=== PATIENT | male | born 2000 | race African-American/Black ===

== ENCOUNTER 2023-01-26 13:01 | Emergency (ER) | payer OTHER ==
[~2023-01-26] VITALS: Ht 188 cm; Wt 94.1 kg
[2023-01-26] MEDS ORDERED: VITAD400CA FT (13:15)
[2023-01-26] MEDS ORDERED: ASHW500C PO (13:15)
[2023-01-26] MEDS ORDERED: VITMTA PO (13:15)
[2023-01-26] MEDS ORDERED: NS 1,000 ML IV ONE (13:25)
[2023-01-26 13:44] LABS: BASO % 0.2 % (0.0-1.0); EOS # 0.1 10^3/uL (0.0-0.5); EOS % 0.6 % (0.0-3.0); HEMATOCRIT 43.6 % (42.0-52.0); HEMOGLOBIN 14.8 g/dl (13.5-17.5); LYMPH # 1.2 10^3/uL (1.5-5.0); LYMPH % 14.9 % (24.0-44.0); MEAN CORPUSCULAR HGB CONC 33.9 g/dl (32.0-36.5); MEAN CORPUSCULAR VOLUME 82.4 fl (80.0-96.0); MONO # 0.4 10^3/uL (0.0-0.8); MONO % 4.9 % (2.0-8.0); NEUTROPHILS # 6.6 10^3/uL (1.5-8.5); NEUTROPHILS % 79.3 % (36.0-66.0); PLATELET COUNT, AUTOMATED 339 10^3/uL (150-450); RED BLOOD COUNT 5.29 10^6/uL (4.30-6.10); WHITE BLOOD COUNT 8.4 10^3/uL (4.0-10.0)
[2023-01-26 14:13] LABS: ETHYL ALCOHOL (ETHANOL) < 0.003 % (0.000-0.010)
[2023-01-26 14:15] LABS: CPK CREATINE PHOSPHOKINASE 200 U/L (46-171); SALICYLATE LEVEL < 3.0 MG/DL (<30)
[2023-01-26 14:16] LABS: ALBUMIN 4.4 G/DL (3.2-5.2); ALKALINE PHOSPHATASE 70 U/L (46-116); ALT/SGPT 15 U/L (7.0-40); AST/SGOT 10 U/L (<34); BILIRUBIN,DIRECT 0.2 MG/DL (<0.4); BILIRUBIN,TOTAL 0.4 MG/DL (0.3-1.2); BLOOD UREA NITROGEN 15 MG/DL (9-23); CALCIUM LEVEL 9.7 MG/DL (8.5-10.1); CARBON DIOXIDE LEVEL 30 MMOL/L (20-31); CHLORIDE LEVEL 102 MMOL/L (98-107); CREATININE FOR GFR 0.82 MG/DL (0.70-1.30); GLOMERULAR FILTRATION RATE > 60.0 (>60); GLUCOSE, FASTING 90 MG/DL (60-100); POTASSIUM SERUM 4.1 MMOL/L (3.5-5.1); SODIUM LEVEL 137 MMOL/L (136-145)
[2023-01-26 14:18] LABS: THYROID STIMULATING HORMONE 0.447 uIU/ML (0.55-4.78)
[2023-01-26 16:19] VITALS: O2SAT 98
[2023-01-26 16:29] VITALS: BP 114/59; TEMP 98
== END 2023-01-26 16:26 | disposition home or self-care (01) ==
LOC: M ED 13:01 → EDBD 13:01 → M ED 16:26
DX: R42 Dizziness and giddiness (principal); R11.10 Vomiting, unspecified; Z79.810 Long term (current) use of selective estrogen receptor modulators (SERMs); Z79.899 Other long term (current) drug therapy

== ENCOUNTER 2023-08-12 10:04 | Emergency (ER) | payer OTHER ==
[~2023-08-12] VITALS: Ht 188 cm; Wt 98.0 kg
[~2023-08-12 10:04] MED LIST: ASHW500C PO; VITAD400CA FT; VITMTA PO
[2023-08-12 10:06] VITALS: BP 133/61; TEMP 98.3; O2SAT 98
[2023-08-12] MEDS ORDERED: BENA25CA4 PO (11:26)
[2023-08-12] MEDS ORDERED: LORA-1041 PO (11:26)
== END 2023-08-12 11:34 | disposition home or self-care (01) ==
LOC: M ED 10:04
DX: T78.40XA Allergy, unspecified, initial encounter (principal); L50.9 Urticaria, unspecified; Z79.2 Long term (current) use of antibiotics; Z79.1 Long term (current) use of non-steroidal anti-inflammatories (NSAID)